=== PATIENT | male | born 1980 | race Caucasian/White ===

== ENCOUNTER 2021-11-09 14:19 | Outpatient (CLI) | payer BC, OTHER ==
[~2021-11-09 14:19] MED LIST: Gadobenate Dimeglumine 529 MG/1 ML (20ML VIAL) ONE
== END 2021-11-09 14:20 | disposition home or self-care (01) ==
LOC: TBSIIMAG 14:19
PROVIDERS: ATTEND Orthopaedic Surgery
DX: M89.9 Disorder of bone, unspecified (principal); M25.522 Pain in left elbow
CPT/HCPCS: A9577

== ENCOUNTER 2022-05-14 13:54 | Outpatient (CLI) | payer BC, OTHER | END 2022-05-14 13:55 | disposition home or self-care (01) | LOC: SCSMRI 13:54 | PROVIDERS: ATTEND Physician Assistant | DX: M54.42 Lumbago with sciatica, left side (principal); M54.41 Lumbago with sciatica, right side; G89.29 Other chronic pain; M51.36 Other intervertebral disc degeneration, lumbar region; M48.061 Spinal stenosis, lumbar region without neurogenic claudication | CPT/HCPCS: 72148 ==